=== PATIENT | female | born 1965 | race Caucasian/White ===

== ENCOUNTER 2020-08-09 14:38 | Emergency (ER) | payer BC ==
[~2020-08-09] VITALS: Ht 160 cm; Wt 90.9 kg
[2020-08-09 14:46] VITALS: TEMP 97.8
[2020-08-09 15:32] LABS: ALANINE AMINOTRANSFERASE 56 U/L (4-34); ALBUMIN 4.4 gm/dL (3.5-5.0); ALKALINE PHOSPHATASE 149 U/L (50-136); ANION GAP 8 mmol/L (7-16); AST,SGOT 35 U/L (15-37); BILIRUBIN,TOTAL 0.4 mg/dL (0.0-1.0); BLOOD UREA NITROGEN 15 mg/dL (7-17); CALCIUM 9.7 mg/dL (8.4-10.2); CARBON DIOXIDE 27 mmol/L (22-30); CHLORIDE 100 mmol/L (98-107); CREATININE, serum 0.78 (0.52-1.25); GLUCOSE 276 mg/dL (74-106); POTASSIUM 3.8 mmol/L (3.4-5.0); SODIUM 135 mmol/L (137-145); TOTAL PROTEIN 7.5 gm/dL (6.4-8.2)
[2020-08-09 15:38] LABS: C-REACTIVE PROTEIN < 0.5 mg/dL (0.0-0.9)
[2020-08-09] MEDS ORDERED: DESYREL DIVIDO150 M1 PO (16:14)
[2020-08-09] MEDS ORDERED: LASIX 20MG TABL20 MG PO (16:14)
[2020-08-09] MEDS ORDERED: COZAAR100 MG PO (16:15)
[2020-08-09] MEDS ORDERED: LAMICTAL200 MG PO (16:16)
[2020-08-09] MEDS ORDERED: MOBIC 7.5MG7.5 MG PO (16:17)
[2020-08-09] MEDS ORDERED: LIPITOR 40MG TA40 MG PO (16:17)
[2020-08-09] MEDS ORDERED: NEURONTIN300 MG/CAP PO (16:18)
[2020-08-09 16:19] LABS: COLLECTION METHOD CLEAN CATCH
[2020-08-09] MEDS ORDERED: GLUMETZA500 MG PO (16:19)
[2020-08-09] MEDS ORDERED: AMARYL 2MG T2 MG/TAB PO (16:19)
[2020-08-09] MEDS ORDERED: ABILIFY5 MG PO (16:20)
[2020-08-09] MEDS ORDERED: GLUCOPHAGE500 MG/TAB PO (16:20)
[2020-08-09] MEDS ORDERED: PROTONIX 40MG T40 MG PO (16:21)
[2020-08-09 16:31] LABS: PH 6 (5-8); SQUAMOUS EPITHELIAL 0-2 /hpf; URINE APPEARANCE Clear; URINE BACTERIA Rare /hpf; URINE BILIRUBIN Negative (NEGATIVE); URINE BLOOD Negative (NEGATIVE); URINE COLOR Yellow; URINE GLUCOSE 3+ (NEGATIVE); URINE KETONE Negative (NEGATIVE); URINE LEUKOCYTE ESTERASE 1+ (NEGATIVE); URINE NITRATE Negative (NEGATIVE); URINE PROTEIN(semi-quant) Negative (NEGATIVE); URINE RBC 0-2 /hpf; URINE UROBILINOGEN Negative (NEGATIVE)
[2020-08-09 18:04] VITALS: BP 145/90; PULSE 106
[2020-08-09 22:21] LABS: BASO # 0.1 (0.0-0.2); BASO % 0.7 % (0.0-2.0); EOS # 0.2 (0.0-0.7); EOS % 3.1 % (0-4.0); GRAN # 4.3 (1.4-6.5); GRAN % 63.4 % (42.2-75.2); HEMATOCRIT 40.6 % (37.0-47.0); HEMOGLOBIN 13.9 g/dl (12.5-16.0); LYMPH # 1.9 (1.2-3.4); LYMPH % 27.7 % (20.0-51.0); MEAN CELL VOLUME 84 fl (80.0-100.0); MEAN CORPUSCULAR HEMOGLOBIN 29 pg (27.0-31.0); MEAN CORPUSCULAR HGB CONC 34 g/dl (33.0-37.0); MEAN PLATELET VOLUME 9.2 fl (7.4-10.4); MONO # 0.3 (0.1-0.6); PLATELET COUNT 327 K/mm3 (130-400); RED BLOOD COUNT 4.86 M/mm3 (4.10-5.30); REDCELL DISTRIBUTION WIDTH-CV 12.4 % (11.5-14.5)
== END 2020-08-09 18:11 | disposition home or self-care (01) ==
LOC: COL.ER 14:38
PROVIDERS: Family Medicine
DX: E11.65 Type 2 diabetes mellitus with hyperglycemia (principal); Z88.5 Allergy status to narcotic agent; Z79.84 Long term (current) use of oral hypoglycemic drugs
CPT/HCPCS: J7120

== ENCOUNTER 2020-10-02 19:45 | Emergency (ER) | payer BC ==
[~2020-10-02] VITALS: Ht 160 cm; Wt 90.9 kg
[~2020-10-02 19:45] MED LIST: ABILIFY5 MG PO; AMARYL 2MG T2 MG/TAB PO; COZAAR100 MG PO; DESYREL DIVIDO150 M1 PO; GLUCOPHAGE500 MG/TAB PO; GLUMETZA500 MG PO; LAMICTAL200 MG PO; LASIX 20MG TABL20 MG PO; LIPITOR 40MG TA40 MG PO; MOBIC 7.5MG7.5 MG PO; NEURONTIN300 MG/CAP PO; PROTONIX 40MG T40 MG PO
[2020-10-02 19:55] VITALS: TEMP 98.2
[2020-10-02 20:40] LABS: BASO % 0.7 % (0.0-2.0); EOS # 0.2 (0.0-0.7); EOS % 2.7 % (0-4.0); GRAN # 3.1 (1.4-6.5); GRAN % 55.9 % (42.2-75.2); HEMATOCRIT 43.1 % (37.0-47.0); HEMOGLOBIN 14.5 g/dl (12.5-16.0); LYMPH # 1.9 (1.2-3.4); LYMPH % 34.1 % (20.0-51.0); MEAN CELL VOLUME 84 fl (80.0-100.0); MEAN CORPUSCULAR HEMOGLOBIN 28 pg (27.0-31.0); MEAN CORPUSCULAR HGB CONC 34 g/dl (33.0-37.0); MEAN PLATELET VOLUME 8.7 fl (7.4-10.4); MONO # 0.4 (0.1-0.6); MONO % 6.4 % (1.7-9.3); PLATELET COUNT 362 K/mm3 (130-400); RED BLOOD COUNT 5.16 M/mm3 (4.10-5.30); REDCELL DISTRIBUTION WIDTH-CV 13.2 % (11.5-14.5)
[2020-10-02 20:47] LABS: CALCIUM 9.6 mg/dL (8.4-10.2); CREATININE, serum 0.88 (0.52-1.25); POTASSIUM 3.9 mmol/L (3.4-5.0)
[2020-10-02] MEDS ORDERED: PREDNISONE20 MG PO (20:50)
[2020-10-02] MEDS ORDERED: VALTREX1 GM PO (20:50)
[2020-10-02 21:04] VITALS: BP 151/83; PULSE 87
== END 2020-10-02 21:06 | disposition home or self-care (01) ==
LOC: COL.ER 19:45
PROVIDERS: Emergency Medicine
DX: G51.0 Bell's palsy (principal); E11.9 Type 2 diabetes mellitus without complications; I10 Essential (primary) hypertension; Z88.5 Allergy status to narcotic agent; Z79.84 Long term (current) use of oral hypoglycemic drugs
CPT/HCPCS: J7512

== ENCOUNTER 2021-12-03 14:13 | Outpatient (RCR) | payer BC ==
[~2021-12-03 14:13] MED LIST changes: +PREDNISONE20 MG PO; +VALTREX1 GM PO
== END 2021-12-11 | disposition still patient (30) ==
LOC: WSOT
DX: Z96.692 Finger-joint replacement of left hand (principal)

== ENCOUNTER 2022-01-07 11:15 | Outpatient (RCR) | payer BC | END 2022-01-10 | disposition home or self-care (01) | LOC: WSOT | DX: Z96.692 Finger-joint replacement of left hand (principal) ==

== ENCOUNTER 2022-04-05 06:59 | Day surgery (SDC) | payer BC ==
[~2022-04-05] VITALS: Ht 157.5 cm; Wt 81.0 kg
[2022-04-05 09:05] VITALS: BP 122/81; PULSE 81; TEMP 97.6
--- NOTE | 2022-04-05 09:07 | NUR ---
09 - PT arrives and was assisted w/ ambulating from cart to chair 2:1; monitors applied and vitals obtained. Verbal room report obtained; PT denies pain/nasuea, snack and drink provided. Visitor remains present. Call leon remains within reach. Non-slip socks are on.
[2022-04-05 09:20] VITALS: BP 134/90; PULSE 80
--- NOTE | 2022-04-05 09:20 | NUR ---
0920 - Vitals obtained. PT continues to snack and drink; denies pain/nausea. Call leon is within reach if needed and visitor remains present. Awaiting DR to speak w/ PT.
[2022-04-05 09:35] VITALS: BP 140/78; PULSE 74
--- NOTE | 2022-04-05 09:36 | NUR ---
0935 - Vitals obtained. IV discontinued. Catheter tip intact and pressure bandage applied; no redness or swelling noted. DC instructions and educational material reviewed w/ PT who verbalized understanding and signed the related paperwork. Questions answered to PT satisfaction. PT refused RN assistance changing into personal clothes; call leon within reach if needed.
--- NOTE | 2022-04-05 09:47 | NUR ---
0945 - PT dismissed from endo via wheelchair to PT entrence by Corrine DHILLON; PT has DC packet and personal belongings, PT was transferred into the care of her family, who is driving private car.
[2022-04-05] MEDS ORDERED: NORVASC 10MG10 MG PO (16:21)
[2022-04-05] MEDS ORDERED: MOUNJARO5 MG/0.5 M SQ (16:26)
[2022-04-05 16:51] VITALS: BP 133/81; PULSE 78; TEMP 97.1
== END 2022-04-05 09:45 | disposition home or self-care (01) ==
LOC: SDCO 06:59
DX: R13.10 Dysphagia, unspecified (principal); K21.9 Gastro-esophageal reflux disease without esophagitis; T18.2XXA Foreign body in stomach, initial encounter; X58.XXXA Exposure to other specified factors, initial encounter; Z87.19 Personal history of other diseases of the digestive system
CPT/HCPCS: J2704

== ENCOUNTER → 2022-12-11 | Outpatient (CLI) | payer BC ==
[~2022-12-11] MED LIST changes: +MOUNJARO5 MG/0.5 M SQ; +NORVASC 10MG10 MG PO
== END ==
LOC: COL.RAD 12-02 13:00
DX: S69.82XA Other specified injuries of left wrist, hand and finger(s), initial encounter (principal)
CPT/HCPCS: A9575; Q9967